=== PATIENT | female | born 1990 | race Caucasian/White ===

== ENCOUNTER 2019-02-14 05:39 | Emergency (ER) | payer BC, SELFPAY ==
[2019-02-14 05:42] VITALS: BP 129/62; PULSE 112; RESP 18; TEMP 37.2; O2SAT 97
--- NOTE | 2019-02-14 05:54 | W.ED.GENAD ---
Discharge Plan Disposition Patient Disposition: HOME Condition: Good Discharge Details Chief Complaint: Sorethroat Clinical Impression: Strep throat Primary Care Provider: Savanah Hoang ED Provider: Michael Chaudhary Home Meds and New Rx's Prescriptions: No Action ibuprofen 200 MG capsule 200 - 400 mg PO Q4H PRN RF: 0 valacyclovir [Valtrex] 500 MG tablet 500 mg PO Q12 HR Qty: 6 RF: 1 escitalopram oxalate [Lexapro] 20 mg tablet See Rx Instructions PO DAILY Qty: 90 RF: 3 escitalopram oxalate 10 mg tablet See Rx Instructions PO DAILY Qty: 90 RF: 3 Discharge Instructions Instructions: Strep Throat (ED) Additional Instructions: You have strep throat. You have received a shot that will help prevent the long-term effects of strep throat. Please continue to take Tylenol and Motrin as needed for pain drink plenty of fluids every day. If you notice any worsening of your symptoms, or any new symptoms such as vomiting, diarrhea, fever, chills, shortness of breath, chest pain, numbness, weakness, or fainting , please return immediately to the emergency department for reevaluation. Please follow up with your primary care provider as soon as possible for reassessment and reevaluation. As always, it was a pleasure participating in your medical care today. Referrals: Savanah Hoang, ASSISTANT PROFESSOR [Primary Care Provider] - Medical Decision Making This is a 28-year-old female who who presents for evaluation of sore throat for the last day and a half. Physical exam demonstrates tonsillar erythema, and exudates. No splenomegaly, no severe fatigue. No red flags of neck pain or stiffness. Strep test is positive. Signs and symptoms are clinically consistent with strep throat. Patient has elected for the shot rather than the pills. We will give this. Recommend Tylenol and Motrin close follow-up with PCP. I have extensively reviewed the treatment plan and discharge instructions with the patient. I have addressed all patient concerns at this time. The patient was made aware of what symptoms to monitor for that would warrant a return to the emergency department. Discussed the plan with the patient, they demonstrate verbal understanding and agreement with our assessment and plan at this time. HPI General Date/Time Provider Initiated Documentation: 02/14/19 05:53. HPI Narrative: This is a pleasant 28-year-old female who presents today for evaluation of sore throat. She states that is been present for the last day and a half. She has associated mild fever and chills. She denies any significant difficulty swallowing. She denies any neck pain, or headache. She denies any chest pain or shortness of breath. She does not admit to any cough. She has no other complaints at this time. No other modifying factors. 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 Related Data Home Medications Medication Instructions Recorded Confirmed ibuprofen 200 - 400 mg PO Q4H PRN tab-cap 10/11/15 02/14/19 valacyclovir [Valtrex] 500 mg PO Q12 HR #6 tab-cap 09/22/17 02/14/19 escitalopram 10 mg tablet See Rx Instructions PO DAILY #90 01/06/19 02/14/19 tab-cap escitalopram 20 mg tablet See Rx Instructions PO DAILY #90 01/06/19 02/14/19 tab-cap Previous Rx's Medication Instructions Recorded valacyclovir [Valtrex] 500 mg PO Q12 HR #6 tab-cap 09/22/17 escitalopram 10 mg tablet See Rx Instructions PO DAILY #90 01/06/19 tab-cap escitalopram 20 mg tablet See Rx Instructions PO DAILY #90 01/06/19 tab-cap Allergies Allergy/AdvReac Type Severity Reaction Status Date / Time ondansetron HCl [From Zofran] Allergy Unknown Hives Unverified 02/14/19 05:46 General Stated Complaint: Sorethroat SLIME: 4 Review of Systems Review of Systems All systems reviewed & are unremarkable except as noted in HPI and below PFSH Social History Smoking/Tobacco Use Status: Never Alcohol Intake: current Alcohol Intake frequency: a few times a week Drug use: Never Substance use type: does not use current occupation: Teacher Pets and animals: No Sexually active: Yes Current gender identity: female What type of physical activity do you participate in: running Frequency: 1-2 times per week Do you feel safe at home: Yes Do you feel safe in your relationship?: Yes Exam Narrative Exam Narrative: 1.Const: Well-nourished, Well-developed, appearing stated age 2.Eyes: PERRL, no conjunctival injection, and symmetrical lids. 3.ENT: Atraumatic external nose and ears. Moist MM. Neck: Symmetric, trachea midline, No thyromegaly. Mild erythema in the posterior oropharynx with mild tonsillar exudates, grade 2 tonsils size. Patient demonstrates good movement of cervical neck. There is no nuchal rigidity, no nuchal tenderness. Patient is able to flex the neck without any difficulty or significant pain. Negative Kernig's and Brudzinski sign. 4.CVS: +S1/S2, No murmurs or gallops. Peripheral pulses 2+ and equal in all extremities. Brisk capillary refill in all extremities. 5.RESP: Unlabored respiratory effort. Clear to auscultation bilaterally. No wheezes rales or rhonchi 6.GI: Soft, Nontender/Nondistended, No hepatosplenomegaly. No guarding or rebound. 7.MSK: Normocephalic/Atraumatic, Extremities w/o deformity or ttp No cyanosis or clubbing, Normal movement of all extremities 8.Skin: Warm, Dry. No rashes or lesions. 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 Sensation grossly intact, no focal neurologic deficits. 10.Psych: (AAO) x3. Appropriate mood and affect Course Vital Signs Temperature 37.2 C 02/14/19 05:42 Pulse 112 H 02/14/19 05:42 Respiratory Rate 18 02/14/19 05:42 Blood Pressure 129/62 02/14/19 05:42 Pulse Oximetry 97 02/14/19 05:42 Temperature 37.2 C 02/14/19 05:42 Temperature Source Skin 02/14/19 05:42 Pulse 112 H 02/14/19 05:42 Respiratory Rate 18 02/14/19 05:42 Respiratory Effort Non-Labored 02/14/19 05:45 Blood Pressure 129/62 02/14/19 05:42 Blood Pressure Position Sitting 02/14/19 05:42 Pulse Oximetry 97 02/14/19 05:42 Oxygen Delivery Method Room Air 02/14/19 05:42 Oxygen Flow Rate 0 02/14/19 05:42 Pain Level 7 02/14/19 05:42 Lab/Test Results Lab/Test Results: POC Strep Test-MICHELLE(Rapid) Start: 02/14/19 05:50 Freq: .Rapid Strep Test Status: Active Protocol: Document 02/14/19 05:50 RD (Rec: 02/14/19 05:50 RD [id number]) Strep test-MICHELLE(Rapid)-POC POC-Strep test-MICHELLE (Rapid) Positive POC-Strep test-MICHELLE (Rapid) Positive
== END 2019-02-14 06:05 | disposition home or self-care (01) ==
LOC: ER 06:08
PROVIDERS: Emergency Provider Student in an Organized Health Care Education/Training Program; PCP Nurse Practitioner Family
DX: J02.0 Streptococcal pharyngitis (principal)
CPT/HCPCS: 87880; 96372; 99284; J0561

== ENCOUNTER 2019-02-16 11:16 | Outpatient (REF) | payer BC, SELFPAY | END 2019-02-16 11:36 | LOC: LBN 11:16 | PROVIDERS: PCP Nurse Practitioner Family; Visit Provider Nurse Practitioner | DX: J02.9 Acute pharyngitis, unspecified (principal) | CPT/HCPCS: 87070 ==

== ENCOUNTER 2019-02-22 11:12 | Outpatient (REF) | payer BC, SELFPAY ==
--- NOTE | 2019-02-22 10:15 | PAPFT_PTH ---
PATIENT: Molly Gonzalez LOC: N U#:[id number] AGE/SX: 28/F ROOM: RE02/22/[address]: BENITEZ Oquendo : 1990 BED: DIS: 02/22/2019 SPEC #: [id number] RECD: 02/22/19 13:01 STATUS: SAMIRA REKarine #: [id number] SHERLEY: 02/22/19 10:[address]: Bryanna Schuler DEPT: [facility] Cytology RECD BY: Myrtle Sinclair ENTERED: 02/22/19 13:02 SP TYPE: PAPFT BOWEN DR: Savanah Hoang APRN Tissues: 1 - CX/ENDOCX FOR PAP SMEARS Procedures: PAP THIN PREP/UVM Screening Comments: [id number]
== END 2019-02-22 11:32 ==
LOC: LBN 11:12
PROVIDERS: PCP Nurse Practitioner Family; Visit Provider Nurse Practitioner Family
DX: Z12.4 Encounter for screening for malignant neoplasm of cervix (principal); R85.612 Low grade squamous intraepithelial lesion on cytologic smear of anus (LGSIL)
CPT/HCPCS: 88142

== ENCOUNTER 2019-04-15 10:26 | Outpatient (REF) | payer BC, SELFPAY ==
--- NOTE | 2019-04-15 09:45 | CER_PTH ---
PATIENT: Molly Gonzalez LOC: [facility] U#:[id number] AGE/SX: 28/F ROOM: RE04/15/[address]: Richard Bravo MD : 1990 BED: DIS: 04/15/2019 SPEC #: [id number] RECD: 04/15/19 12:44 STATUS: SAMIRA RAZO #: [id number] SHERLEY: 04/15/19 09:[address]: Richard Bravo DEPT: Surgical Specimen RECD BY: Myrtle Sinclair ENTERED: 04/15/19 12:45 SP TYPE: CER OTHR DR: Savanah Hoang APRN Tissues: 1 - CERVICAL BIOPSY 2 - ENDOCERVICAL BX/CURRETTE Procedures: GROSS AND MICRO LEVEL 4 Comments: [id number]
== END 2019-04-15 10:46 ==
LOC: LBN 10:26
PROVIDERS: PCP Nurse Practitioner Family; Visit Provider Obstetrics & Gynecology
DX: N87.9 Dysplasia of cervix uteri, unspecified (principal); R87.612 Low grade squamous intraepithelial lesion on cytologic smear of cervix (LGSIL)
CPT/HCPCS: 88305

== ENCOUNTER 2020-02-21 01:30 | Outpatient (CLI) | payer BC, SELFPAY ==
[2020-02-21 11:20] LABS: Abs Immature Grans 0.01 k/cumm (0.0-0.09); Absolute Basophil Count 0.02 k/cumm (0.0-0.2); Absolute Eosinophil Count 0.08 k/cumm (0.0-0.7); Absolute Lymphocyte Count 1.39 k/cumm (1.2-3.4); Absolute Monocyte Count 0.38 k/cumm (0.11-0.7); Absolute Neutrophil Count 6.23 k/cumm (1.2-6.7); Basophils % 0.2; HCT 38.1 % (36.0-46.0); HGB 13.4 g/dL (12.0-15.5); Immature Grans % 0.1 %; Lymphocytes % 17.1; Mean Corp. HGB Concentration 35.2 g/dL (32.0-36.0); Mean Corpuscular Volume 85.2 fL (80-95); Mean Platelet Volume 10.1 fL (8.0-11.0); Monocytes % 4.7; Neutrophils % 76.9; Platelet Count 245 x1000/uL (130-400); RBC 4.47 m/cumm (4.00-5.20); RBC Distribution Width 12.3 % (11.7-14.6); White Blood Cell Count 8.11 k/cumm (4.4-10.8)
[2020-02-21 12:02] LABS: TSH (W/Ref FT4) 1.27 uIU/mL (0.36-3.74)
[2020-02-22 11:09] LABS: HIV-1/2 Ag & Ab Screen Negative (Negative)
[2020-02-22 15:29] LABS: Rubella IgG Ab (UVM) Positive (See Note); Varicella IgG Antibody Positive (See Note)
[2020-02-22 15:52] LABS: Syphilis Total Ab w/Reflex Nonreactive (Nonreactive)
[2020-02-23 09:47] LABS: Hepatitis B Surface Ag Negative (Negative)
[2020-02-23 11:03] LABS: Hepatitis C Ab w Rflx HCV PCR Negative (Negative)
[2020-02-27 13:31] LABS: Specimen WB Whole Blood
[2020-02-28 00:44] LABS: Result Summary NEGATIVE; Specimen WB Whole Blood
== END 2020-02-21 01:50 ==
PROVIDERS: PCP Nurse Practitioner Family; Visit Provider Advanced Practice Midwife
DX: Z34.91 Encounter for supervision of normal pregnancy, unspecified, first trimester (principal); Z3A.11 11 weeks gestation of pregnancy; Z11.59 Encounter for screening for other viral diseases; Z36.89 Encounter for other specified antenatal screening; Z11.4 Encounter for screening for human immunodeficiency virus [HIV]
CPT/HCPCS: 36415; 81329; 86787; 86803; 86850; 86900; 86901; 87340; 87389; 81220; 84443; 85025; 86762; 86780

== ENCOUNTER 2020-02-21 11:25 | Outpatient (REF) | payer BC, SELFPAY ==
--- NOTE | 2020-02-21 10:00 | PAPFT_PTH ---
PATIENT: Molly Gonzalez LOC: [facility] U#:[id number] AGE/SX: 29/F ROOM: RE02/21/[address]: Janice Jeronimo CNM : 1990 BED: DIS: 02/21/2020 SPEC #: [id number] RECD: 02/21/20 12:54 STATUS: SAMIRA REQ #: [id number] SHERLEY: 02/21/20 10:[address]: Janice Jeronimo DEPT: [facility] Cytology RECD BY: Myrtle Sinclair ENTERED: 02/21/20 12:55 SP TYPE: PAPFT OTHR DR: Savanah Hoang APRN Tissues: 1 - CX/ENDOCX FOR PAP SMEARS Procedures: PAP THIN PREP/UVM Screening HPV DNA PROBE Comments: [id number]
[2020-02-21 12:35] LABS: *AMPHETAMINES SCREEN URINE Negative (Negative); *BARBITURATES SCREEN URINE Negative (Negative); *BENZODIAZEPINES SCREEN URINE Negative (Negative); Cannabinoids THC Negative (Negative); Cocaine Screen,Urine Negative (Negative); METHADONE URINE SCREEN Negative (Negative); OPIATES URINE SCREEN Negative (Negative); Tricyclic Antidepressants Negative (Negative)
[2020-02-23 07:16] LABS: Chlamydia Result Negative (Negative); GC Result Negative (Negative)
[2020-02-25 12:56] LABS: Buprenorphine Negative; Norbuprenorphine Negative
== END 2020-02-21 11:45 ==
LOC: LBN 11:25
PROVIDERS: PCP Nurse Practitioner Family; Visit Provider Advanced Practice Midwife
DX: Z34.91 Encounter for supervision of normal pregnancy, unspecified, first trimester (principal); Z3A.11 11 weeks gestation of pregnancy; Z11.3 Encounter for screening for infections with a predominantly sexual mode of transmission; Z12.4 Encounter for screening for malignant neoplasm of cervix; Z11.51 Encounter for screening for human papillomavirus (HPV); R87.612 Low grade squamous intraepithelial lesion on cytologic smear of cervix (LGSIL)
CPT/HCPCS: 80307; 87491; 87591; 88142; 87086; 87624

== ENCOUNTER 2020-04-12 02:08 | Outpatient (CLI) | payer BC, SELFPAY ==
--- NOTE | 2020-04-12 07:30 | DI.US_ITS ---
EXAM: US OB 2-3 TRIMESTER CLINICAL HISTORY: 18 wk anatomy survey,[id number]. TECHNIQUE: Transabdominal obstetrical ultrasound performed. COMPARISON: No exams were available for comparison FINDINGS: Transabdominal obstetrical ultrasound performed. FINDINGS: Number of fetuses: One. position: Varied during the examination. heart rate: 162 bpm. Placental location: Anterior and fundal. No evidence of previa. BIOMETRIC DATA: Composite Age: 20 weeks 1 day EDC: 08/29/2020 Heart Rate: 162BPM Amniotic fluid index: Visually, amount of fluid is within normal limits. ANATOMICAL SURVEY: Within normal limits. BPD: 4.7cm HC: 17.7cm AC: 14.9cm FL: 3.2cm Cisterna Magna: 3.1 mm Cerebellum: 2.0 cm IMPRESSION: 1. Single live intrauterine gestation as above. 2. Normal anatomic survey. DATA REPOSITORY:
== END 2020-04-12 02:28 ==
PROVIDERS: PCP Nurse Practitioner Family; Visit Provider Advanced Practice Midwife
DX: Z34.92 Encounter for supervision of normal pregnancy, unspecified, second trimester (principal); Z3A.18 18 weeks gestation of pregnancy
CPT/HCPCS: 76805

== ENCOUNTER 2020-04-12 03:12 | Outpatient (CLI) | payer BC, SELFPAY ==
[2020-04-17 12:07] LABS: AFP 70.1 ng/mL; Calculated age at EDD 31 years; Cigarette smoking status non-Smoker; GA used in risk estimate Scan estimate; INHIBIN 247 pg/mL; IVF Pregnancy No; Initial or repeat testing Initial testing; Insulin dependent diabetes No; Maternal Weight 145 lbs; Number of Fetuses 1; Physician Phone Number 802-748-7300; Prev Down(T21)/Trisomy Pregnan No; Prev Pregnancy w/NTD No; RECOMMENDED FOLLOW UP None.; Results Summary Normal risk; hCG, TOTAL 14.8 IU/mL; hCG, TOTAL MoM 0.66 MoM; uE3 MoM 1.09 MoM
== END 2020-04-12 03:32 ==
PROVIDERS: Advanced Practice Midwife; PCP Nurse Practitioner Family; Visit Provider Advanced Practice Midwife
DX: Z34.92 Encounter for supervision of normal pregnancy, unspecified, second trimester (principal)
CPT/HCPCS: 36415; 81511

== ENCOUNTER 2020-06-15 02:40 | Outpatient (CLI) | payer BC, SELFPAY ==
[2020-06-15 09:30] LABS: HCT 37.9 % (36.0-46.0); MCH 30.4 pg (27.0-33.0); MCHC 34.3 % (32.0-36.0); MCV 88.6 fL (80-95); MPV 10.2 fL (8.0-11.0); Platelet Count 207 10^3/uL (130-400); RBC 4.28 10^6/uL (3.93-5.22); RDW 12.8 % (11.7-14.6); RDW-SD 41.5 fL; WBC 9.84 10^3/uL (4.4-10.8)
[2020-06-15 09:55] LABS: Glucose,1 Hr (Glucola) 89 mg/dL (80-140)
== END 2020-06-15 03:00 ==
PROVIDERS: Advanced Practice Midwife; PCP Nurse Practitioner Family; Visit Provider Advanced Practice Midwife
DX: Z34.92 Encounter for supervision of normal pregnancy, unspecified, second trimester (principal)
CPT/HCPCS: 36415; 82950; 85027

== ENCOUNTER 2020-06-22 02:11 | Outpatient (CLI) | payer BC, SELFPAY ==
--- NOTE | 2020-06-22 06:15 | DI.US_ITS ---
APPROVED REPORT EXAM: Comprehensive 2D, Doppler, and color-flow Echocardiogram Patient Location: Out-Patient Lowerator Operator: Lazara Graham RDCS (AE) Indications: New murmur in Other Information Study Quality: Good Conclusion Left Ventricle : The left ventricle is normal size. The left ventricular systolic function is normal. The left ventricular ejection fraction is within the normal range. There is normal left ventricular wall thickness. There is normal LV segmental wall motion. The left ventricular diastolic function is normal. LVEF is 60%. Right Ventricle : The right ventricle is normal size. The right ventricular systolic function is norm al. The RVSP is 17.5 mmHg. Atria : The left atrium size is normal. The right atrium size is normal. Valves: There are no hemodynamically significant valvular lesions. Great Vessels : The aortic root is normal in size. The ascending aorta is normal in size. Aortic arch is normal in caliber. IVC is normal in size and collapses >50% with inspiration. Please see remainder of study for further details. Wall motion Left Ventricle The left ventricle is normal size. The left ventricular systolic function is normal. The left ventric ular ejection fraction is within the normal range. There is normal left ventricular wall thickness. T here is normal LV segmental wall motion. The left ventricular diastolic function is normal. There is no ventricular septal defect visualized. LVEF is 60%. Right Ventricle The right ventricle is normal size. The right ventricular systolic function is normal. The RVSP is 17 .5 mmHg. Atria The left atrium size is normal. The right atrium size is normal. The interatrial septum is intact wit h no evidence for an atrial septal defect. Aortic Valve The aortic valve is normal in structure. Aortic valve is trileaflet. There is no aortic valvular sten osis. No aortic regurgitation is present. Mitral Valve The mitral valve is normal in structure. No evidence of mitral valve stenosis. Trace mitral regurgita tion. Tricuspid Valve The tricuspid valve is normal in structure. There is no tricuspid valve stenosis. Trace tricuspid reg urgitation. Pulmonic Valve The pulmonary valve is normal in structure. There is no pulmonic valvular stenosis. Trace pulmonic re gurgitation. Great Vessels The aortic root is normal in size. The ascending aorta is normal in size. Aortic arch is normal in ca liber. IVC is normal in size and collapses >50% with inspiration. Pericardium There is no pericardial effusion. 2D Dimensions IVSD d PLAX 0.79 cm F: 0.6-1.0 LV Vol A2C d MOD 75.0 mL LVPW d PLAX 0.78 cm F: 0.6 - 1.0 LV Vol A4C d MOD 74.8 mL LVID d PLAX 4.24 cm F: 3.8 - 5.2 LA vol/ BSA A2C s A-L 19.6 mL/m2 LVDs 2.75 cm F: 2.2 - 3.5 LA vol/ BSA A4C s A-L 12.0 mL/m2 Ao Root d 2.60 cm F: 2.7 - 3.3 LA Vol/ BSA Biplane s A-L 15.4 mL/m2 RA Area A4C 9.39 cm2 LA Area A4C s MOD 10.70 cm2 RA Vol/ BSA A4C s A-L 9.5 mL/m2 LA Area A2C s MOD 13.81 cm2 Ao Asc Diam d 2.63 cm F: 2.3 - 3.1 LV EF A4C MOD 59.8 % LV EF Teichholz 63.9 % LV EF A2C MOD 57.1 % LVEF (Reyez's) 58.59 % F: 54 - 74 LV EF Biplane MOD 58.6 % LV Volume 58.92 mL F: 46 - 106 SV 44.20 mL LV Volume Index 33.10 mL/m2 F: 29 - 61 SV Index 24.83 mL/m2 LV Vol Biplane MOD 75.4 mL FS 34.45 % M-Mode TAPSE 2.38 cm (M/F) >1.7 LV Diastology MV E' medial 0.134 (>0.07 m/s) E/A Ratio 1.2 LV E/e MED 5.85 (<14) MV E Vmax 0.79 (0.4-1.3 m/s) MV E' lateral 0.158 (>0.1 m/s) MV A Vmax 0.65 (0.4-1.3 m/s) LV E/e LAT 5.00 (<14) MV E/A Ratio 1.16 MV E/E' medial 5.86 MV E/E' lateral 5.00 Aortic Valve LVOT Vmax 1.07 m/s LVOT Mean Jim. 0.79 m/s LVOT Peak Grad 4.6 mmHg LVOT Mean Grad 2.7 mmHg LVOT VTI 0.191 m LVOT Diam s 2.10 cm AoV Vmax 1.29 m/s Velocity Ratio 0.82 AoV Mean Jim. 0.82 m/s AoV Peak Grad 6.7 mmHg AoV Mean Grad 3.1 mmHg AoV VTI 0.224 m Mitral Valve MV DT 241 (160-240 msec) MV PHT 70 msec MV Area PHT 3.15 cm2 Pulmonary Valve PV Vmax 1.09 (0.5-1.5 m/s) RVOT Peak Gr. 2.63 mmHg PV Peak Grad 4.7 mmHg RVOT Mean Gr. 1.20 mmHg PV Mean Grad 2.3 mmHg RVOT VTI 0.128 m PV VTI 0.186 m RVOT Vmax 0.81 m/s Tricuspid Valve TR Peak Grad 14.5 mmHg TR Vmax 1.91 m/s RA Pressure 3.00 mmHg RVSP (TR) 17.5 mmHg
== END 2020-06-22 02:31 ==
PROVIDERS: PCP Nurse Practitioner Family; Visit Provider Nurse Practitioner Family
DX: R01.1 Cardiac murmur, unspecified (principal); O99.413 Diseases of the circulatory system complicating pregnancy, third trimester
CPT/HCPCS: 93306

== ENCOUNTER 2020-08-15 09:28 | Outpatient (CLI) | payer BC, SELFPAY ==
[2020-08-15 09:42] VITALS: BP 127/80; PULSE 86; TEMP 36.8
[2020-08-15 10:03] VITALS: BP 127/80; PULSE 86
[2020-08-15 10:20] LABS: HCT 36.7 % (36.0-46.0); HGB 12.4 g/dL (11.2-15.7); MCH 29.4 pg (27.0-33.0); MCHC 33.8 % (32.0-36.0); MPV 11.1 fL (8.0-11.0); Platelet Count 172 10^3/uL (130-400); RBC 4.22 10^6/uL (3.93-5.22); RDW 12.7 % (11.7-14.6); RDW-SD 39.6 fL; WBC 9.97 10^3/uL (4.4-10.8)
[2020-08-15 10:32] VITALS: BP 114/77; PULSE 83
[2020-08-15 10:35] LABS: ALT 17 U/L (14-59); AST 18 U/L (15-37); Albumin 2.6 g/dL (3.4-5.0); Alkaline Phosphatase 165 U/L (46-116); Anion Gap 8.5 mmol/L (3-11); BUN 9 mg/dL (7-18); Bilirubin, Total 0.4 mg/dL (0.2-1.0); CO2 23.5 mmol/L (21.0-32.0); CREATININE 0.63 mg/dL (0.55-1.02); Calcium 9.1 mg/dL (8.5-10.1); Chloride 103 mmol/L (98-107); Glucose 78 mg/dL (74-106); Potassium 3.6 mmol/L (3.5-5.1); Sodium 135 mmol/L (136-145); Total Protein 6.8 g/dL (6.4-8.2); Uric Acid 3.9 mg/dL (2.6-6.0)
--- NOTE | 2020-08-16 13:32 | W.OBNST ---
Date of service: 08/15/20 Time of Service: 16:00 NST Evaluation Reason for NST Reasons for Nonstress Test: GESTATIONAL HYPERTENSION Gestational Age Gestational Age in Weeks and Days: 36 Weeks and 6Days Test and Monitor Explained Test/Monitor Explained: Test Explained, Monitor Explained and Patient Verbalized Understanding Vital Signs Blood Pressure: 127/80 Pulse: 86 Temperature: 98.2 F NST Information Date on Monitor: 08/15/20 Time on Monitor: 10:36 Date off Monitor: 08/15/20 Time off Monitor: 10:36 Total Time on Monitor: 0 NST Interventions: PO Hydration NST Evaluation Patient States Movement: Present FHR Baseline: 145 Variability: Moderate 6-25 bpm Accelerations: 15x15 Decelerations: None NST Results: Reactive Note NST Note Note: NST for elevated B.P at the office. B.P 127/80. Reactive NST. Preeclampsia labs drawn and pending. Signs of preeclampsia were reviewed. I will call Molly with results NST Reviewed and Verified by: Omaira Bauman
[2020-08-16 13:33] VITALS: BP 127/80; PULSE 86; TEMP 36.8
== END 2020-08-15 10:37 ==
LOC: BCD 09:29 → OBS 09:36
PROVIDERS: PCP Nurse Practitioner Family; Visit Provider Advanced Practice Midwife
DX: O13.3 Gestational [pregnancy-induced] hypertension without significant proteinuria, third trimester (principal); Z3A.36 36 weeks gestation of pregnancy
CPT/HCPCS: 36415; 59025; 80053; 85027; 84550

== ENCOUNTER 2020-08-15 18:51 | Outpatient (REF) | payer BC, SELFPAY ==
[2020-08-15 16:05] LABS: PROTEIN 21.2 mg/dL
[2020-08-15 16:07] LABS: *AMPHETAMINES SCREEN URINE Negative (Negative); *BARBITURATES SCREEN URINE Negative (Negative); *BENZODIAZEPINES SCREEN URINE Negative (Negative); Cannabinoids THC Negative (Negative); Cocaine Screen,Urine Negative (Negative); METHADONE URINE SCREEN Negative (Negative); OPIATES URINE SCREEN Negative (Negative)
[2020-08-15 17:37] LABS: Tricyclic Antidepressants Negative (Negative)
[2020-08-15 17:45] LABS: COMMENT (LAB VIEW ONLY) 149.99 mg/dL; Prot/Crea Ur Ratio 0.14
[2020-08-19 11:25] LABS: Buprenorphine Negative
== END 2020-08-15 19:11 ==
LOC: LBN 18:51
PROVIDERS: PCP Nurse Practitioner Family; Visit Provider Advanced Practice Midwife
DX: O16.3 Unspecified maternal hypertension, third trimester (principal); Z34.93 Encounter for supervision of normal pregnancy, unspecified, third trimester
CPT/HCPCS: 80307; 82565; 84156; 87081

== ENCOUNTER 2020-08-22 09:50 | Inpatient (IN) | payer BC, SELFPAY ==
[2020-08-22] VITALS (13 sets, daily range): BP systolic 109–149; BP diastolic 57–85; PULSE 90–111; RESP 16; TEMP 36.7–37.1; O2SAT 99
[2020-08-22 10:34] LABS: ROM Plus Positive
--- NOTE | 2020-08-22 12:01 | HPE_ITS ---
Date of service: 08/22/20 Time of Service: 12:02 Assessment and Plan Assessment and plan (1) Spontaneous rupture of amniotic membranes: Status: Acute (2) Spontaneous onset of labor: Status: Acute Assessment and plan: Admit to Center. Will continue to assess labor pattern. Comfort measures. Covid- 19 test. Anticipate . OB-HPI Labor/Delivery History of Present Illness Reason for Visit: R/O SROM Chief Complaint: Uterine Contractions; Suspected Rupture of Membranes , Associated Signs and Symptoms of Suspected ROM: none. LILLY Calculator Estimated Delivery Date Method Current WG Current Estimate 09/06/20 LMP (Certain) 37w 6d Other Estimates 09/07/20 Ultrasound #1 37w 5d Comments: Molly called and reported ruptured membranes at 0600. She was leaking smal amounts of clear fluid on arrival which was ROM plus and nitrazine pos., pos. pooling. Contractions are irregular and mild and described as cramping. She is admitted in early labor. History of Present Expected Delivery Route/Plan - CNM FOB/boyfriend - Mehul Gonzalez (has 2 older children) BB - Open to several options for relief in labor GBS negative Specific Issues/Plan 1. Colpo Apr 2019 for LGSIL, showed only reactive changes. Next PAP/HPV due this summer, done at initial OB 1a. PAP result is LGSIL, +HPV, discussed w/Dr. Wilson, colpo is recommended 2. Anxiety disorder, took lexapro but stopped in October, december restart at delivery to avoid PPD 3. Declines [place], accepts CF/SMA testing and Quad screen, form signed 3a. CF/SMA carrier screen negative 3b. Quad screen low risk x3 4. Hx HSV, last outbreak a couple years ago, start Valtrex prophylaxis at 36 weeks 5. Systolic flow murmer heard at initial OB, no hx sx or concerns 5a. referred to PCP, Rosa Hoang 5b. 06/22/20 maternal echo wnl w/o need for f/u as per consult w/ Dr. Wilson. al 6. sciatica right - PT offered. She will consider if it increases. [facility], [facility] Medical History Anxiety and depression Hx of polymerase chain reaction DNA 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 (08/11/14) 2009 Seasonal affective disorder Family History Mother Essential hypertension Hypothyroid Maternal Grandfather Heart disease Paternal Grandfather Colon cancer Father Sarcoidosis Maternal Grandmother Dementia Macular degeneration Social History Smoking/Tobacco Use Status: Never Smoking risk assessment performed?: Yes Alcohol Intake: current Alcohol Intake frequency: a few times a week Drug use: Never Substance use type: does not use Household members: significant other Housing: house Communication Needs: None current occupation: Teacher Pets and animals: No Sexually active: Yes Current gender identity: female What is your relationship status?: living with partner Panel score (0-1 are the most socially isolated patients): 1 What type of physical activity do you participate in: running Frequency: 1-2 times per week Do you feel safe at home: Yes Do you feel safe in your relationship?: Yes Female Reproductive History Menstrual control method: pills History History 1 Para 0 Hx # Term Pregnancies 0 Multiple births 0 Hx # Pregnancies 0 Ectopic pregnancies 0 AB induced 0 Hx Number of Living Children 0 AB spontaneous 0 Meds Home Medications and Allergies Home Medications Medication Instructions Recorded Confirmed Type vitamin with calcium 1 tab PO DAILY #90 tab 01/27/20 08/22/20 Rx no.72-iron 27 mg-folic acid 1 mg tablet valacyclovir 500 mg tablet 500 mg PO BID #60 tab 08/01/20 08/22/20 Rx Allergies Allergy/AdvReac Type Severity Reaction Status Date / Time ondansetron HCl [From Zofran] Allergy Unknown Hives Verified 08/15/20 08:47 Exam Physical Exam Vital signs: Temp Pulse BP 98.2 F 92 H 144/79 H 08/22/20 09:37 08/22/20 11:53 08/22/20 11:53 Vital Signs Reviewed: Yes Constitutional Constitutional: no acute distress Detailed Labor and Delivery Exam Burgess Score: Cervical Points Exam 0 1 2 3 Dilation Closed 1-2cm 3-4 cm 5-6cm Effacement 0-30% 40-50% 60-70% 80% Consistency Firm Medium Soft Station -3 -2 -1,0 +1,+2 Position Posterior Mid Anterior Amniotic Membrane Status: Ruptured Rupture Method: Spontaneous Amniotic Fluid: Clear Pooling: Positive Nitrazine: Positive ROM Plus: Positive Contraction Frequency(min): irregular, every 2-4 minutes Contraction Intensity: Mild Fetus A Heart Rate Baseline: 140 Monitor Accelerations: 15 X 15 Monitor Decelerations: None Variability: Moderate (6-25 BPM) Presentation: Cephalic Categories: Category I Date of Membrane Rupture: 08/22/20 Time of Membrane Rupture: 06:15 Respiratory Exam Respiratory Exam: Normal Cardiovascular Exam Cardiovascular Exam: Normal Abdominal Exam Abdominal Exam: Normal Rectal Exam Rectal Exam: Normal Exam Exam: Normal Extremities Exam Extremities Exam: Normal Skin Exam Skin Exam: Normal Psychiatric Exam Psychiatric Exam: Normal Results Results Group Beta Strep: Negative Blood Type: B+ Rubella Status: Immune Varicella Immunity: Immune Risk Assessment Risk for Shoulder Dystocia Historical/Initial OB: NEGATIVE FOR: Pelvic Abnormality, Pre- BMI>30, Previous Shoulder Dystocia or Previous Macrosomia 40 Weeks: NEGATIVE FOR: EFW> 4500 gms, Maternal Weight Gain >40lb or Post Dates Increased Risk?: No Risk for Pre-Eclampsia Yes, if one or more: NEGATIVE FOR: Hx Pre-E/Gest HTN, Chronic HTN, Multiple Gestation, Pre-gestational DM, Renal Disease, Systemic Lupus or APA Syndrome Yes, if 2 or more: POSITIVE FOR: Nulliparity; NEGATIVE FOR: Age>= 35 yrs, >10yr btwn pregnancies, BMI>30, ethinicty, Mother/Sister w/ Pre-E or Previous IUGR Risk for Post- Hemorrhage Initial: NEGATIVE FOR: Multiple Gestation, Previous PPH, Known Clotting Deficiency, Grand Multiparity or Anticoagulation At Risk?: No Risks Reviewed Risks Reviewed Upon Admission: Yes
[2020-08-22 12:30] LABS: HCT 36.4 % (36.0-46.0); HGB 12.5 g/dL (11.2-15.7); MCH 29.5 pg (27.0-33.0); MCHC 34.3 % (32.0-36.0); MCV 85.8 fL (80-95); MPV 11.2 fL (8.0-11.0); Platelet Count 178 10^3/uL (130-400); RBC 4.24 10^6/uL (3.93-5.22); RDW 12.8 % (11.7-14.6); RDW-SD 39.2 fL; WBC 11.58 10^3/uL (4.4-10.8)
[2020-08-22 12:43] LABS: ALT 18 U/L (14-59); AST 18 U/L (15-37); Albumin 2.7 g/dL (3.4-5.0); Alkaline Phosphatase 171 U/L (46-116); BUN 10 mg/dL (7-18); Bilirubin, Total 0.4 mg/dL (0.2-1.0); CREATININE 0.54 mg/dL (0.55-1.02); Chloride 104 mmol/L (98-107); Glucose 73 mg/dL (74-106); Potassium 3.8 mmol/L (3.5-5.1); Sodium 137 mmol/L (136-145); Total Protein 6.9 g/dL (6.4-8.2)
[2020-08-22 12:55] LABS: Uric Acid 4.1 mg/dL (2.6-6.0)
--- NOTE | 2020-08-22 15:27 | W.PM.OBNL1 ---
Date of service: 08/22/20 Time of Service: 15:28 Pelvic Exam Dilation: 3 Effacement (%): 85 station: +1 Cervix Position: posterior Consistency: soft Vaginal Exam Presentation: Cephalic Pooling: Positive Contractions Contraction Frequency(min): everyn2-3 Intensity: Strong Fetus A Monitor: Doppler Heart Rate Baseline: 130 Presentation: Cephalic FHR Rhythm: Regular Decelerations: None Assessment and Plan Assessment and plan (1) Spontaneous onset of labor: Status: Acute Assessment and plan: continue to offer comfort measures and encourage position changes. Anticipate . Dr. Dean notified of patient's admission and status. Objective Abnormal lab results 08/22/20 08/22/20 Range/Units 12: 12:17 WBC 11.58 H (4.4-10.8) 10^3/uL MPV 11.2 H (8.0-11.0) fL Anion Gap 12.0 H (3-11) mmol/L Creatinine 0.54 L (0.55-1.02) mg/dL Glucose 73 L (74-106) mg/dL Alkaline Phosphatase 171 H (46-116) U/L Albumin 2.7 L (3.4-5.0) g/dL Temp Pulse BP 98.1 F 93 H 116/77 08/22/20 13:09 08/22/20 14:01 08/22/20 14:01 Laboratory Results WBC 11.58 10^3/uL (4.4-10.8) H 08/22/20 12:17 RBC 4.24 10^6/uL (3.93-5.22) 08/22/20 12:17 Hgb 12.5 g/dL (11.2-15.7) 08/22/20 12:17 Hct 36.4 % (36.0-46.0) 08/22/20 12:17 MCV 85.8 fL (80-95) 08/22/20 12:17 MCH 29.5 pg (27.0-33.0) 08/22/20 12:17 MCHC 34.3 % (32.0-36.0) 08/22/20 12:17 RDW 12.8 % (11.7-14.6) 08/22/20 12:17 Plt Count 178 10^3/uL (130-400) 08/22/20 12:17 MPV 11.2 fL (8.0-11.0) H 08/22/20 12:17 Sodium 137 mmol/L (136-145) 08/22/20 12:17 Potassium 3.8 mmol/L (3.5-5.1) 08/22/20 12:17 Chloride 104 mmol/L (98-107) 08/22/20 12:17 Carbon Dioxide 21.0 mmol/L (21.0-32.0) 08/22/20 12:17 Anion Gap 12.0 mmol/L (3-11) H 08/22/20 12:17 BUN 10 mg/dL (7-18) 08/22/20 12:17 Creatinine 0.54 mg/dL (0.55-1.02) L 08/22/20 12:17 Estimated GFR/1.73 m2 >= 60.00 (mL/min/1.73m2) 08/22/20 12:17 Glucose 73 mg/dL (74-106) L 08/22/20 12:17 Uric Acid 4.1 mg/dL (2.6-6.0) 08/22/20 12:17 Calcium 9.0 mg/dL (8.5-10.1) 08/22/20 12:17 Total Bilirubin 0.4 mg/dL (0.2-1.0) 08/22/20 12:17 AST 18 U/L (15-37) 08/22/20 12:17 ALT 18 U/L (14-59) 08/22/20 12:17 Alkaline Phosphatase 171 U/L (46-116) H 08/22/20 12:17 Total Protein 6.9 g/dL (6.4-8.2) 08/22/20 12:17 Albumin 2.7 g/dL (3.4-5.0) L 08/22/20 12:17 Membranes Rupture Positive 08/22/20 10:05 Patient ABO/Rh B Positive 08/22/20 12:17 Antibody Screen Negative 08/22/20 12:17 Subjective Interval history since last seen: Progressed to active labor. 3 cms at 1315. using ntrous oxide with good effect. using the tub also with good effect. Beginnning to feel an urge to push. Results Hemoglobin/Hematocrit: Hgb 12.5 g/dL (11.2-15.7) 08/22/20 12:17 Hct 36.4 % (36.0-46.0) 08/22/20 12:17 Abnormal Lab Findings: Abnormal Labs 08/22/20 08/22/20 12:17 12:17 WBC 11.58 H MPV 11.2 H Anion Gap 12.0 H Creatinine 0.54 L Glucose 73 L Alkaline Phosphatase 171 H Albumin 2.7 L
--- NOTE | 2020-08-22 18:03 | OBVDS_ITS ---
Date of service: 08/22/20 Time of Service: 18:03 OB Labor/ Delivery Information Baby A Delivery Delivery Method: Spontaneaous Presentation: Cephalic Cephalic Position: Vertex Vertex Position: Left Occipital Anterior Cord Description-Baby A: 3 Vessels Amniotic Fluid: Clear Estimated Blood Loss: 350 Delivery Outcome: Liveborn Transferred: Remains with Mother Note: FHTs 130s during first stage of labor. FHTs 120s in second stage with decellerations noted by doppler with pushing. Progressed to full dilation and began pushing. SPushed well and had a spontaneous delivery of male infant delivered in DIVINE position. Baby was placed on mother's abdomen and dried and stimulated. Spontaneous cry. A short Cord was noted and was clamped and cut by the baby's father. The placenta delivered spontaneously and appears to be intact with a three vessel cord. Pitocin 10 units IM was administered after delivery of the placenta. The perineum was inspected and there were bilateral periurethral lacerations which were not repaired and a 2nd degree laceration which was repaired. The baby did breastfeed. After delivery, Mother and baby Alok and father of the baby were stable and bonding well in the delivery room and there were no complications. Providers Nurse Bottom Cager: Omaira Bauman Highway Technician: Corona Watson Nurse: Candi Burr Nurse: Angel Schuster Labor/Delivery Information Number of Babies in Womb: 1 Steroids Given: None Reason Steroids Not Administered: N/A Group Beta Strep: Negative Antibiotics Administered: No Rubella Status: Immune Blood Type: B+ Varicella Immunity: Immune Medication in Delivery: Nitrous Maternal Complications: None Shoulder Dystocia: No Stages of Labor Onset of Labor Date: 08/22/20 Onset of Labor Time: 13:30 Complete Dilatation Date: 08/22/20 Complete Dilatation Time: 15:35 Labor - Stage 1 Duration: 0 minutes ROM Baby A: 08/22/20 ROM Baby A: 06:15 ROM Total Time- Baby A: [id number] Infant Delivery Date-Baby A: 08/22/20 Delivery Time-Baby A: 17:23 Labor Stage 2 Duration: 1 hours and 48 minutes Placenta Delivery Date-Baby A: 08/22/20 Placenta Delivery Time-Baby A: 17:35 Labor-Stage 3 Duration: 12 minutes Total Length of Labor-Baby A: 3 hours and 53 minutes Placenta Status: Delivered Baby A Infant Gender: Male Gestational Status: Early Term (37-38.6 wks) Gestational Age in Weeks/Days: 37 Weeks and 6 Days Score-1 Minute Interval(Baby A) Heart Rate-1 minute: 100 BPM or Greater Respiratory Effort- 1 minute: Spontaneous/Strong Cry Muscle Tone-1 minute: Active Movement Reflex Response-1 minute: Prompt Response Color-1 minute: Bluish Hands or Feet Total Score-1 minute: 9 Score-5 Minute Interval(Baby A) Heart Rate- 5 minute: 100 BPM or Greater Respiratory Effort-5 minute: Spontaneous/Strong Cry Muscle Tone-5 minute: Active Movement Reflex Response-5 minute: Prompt Response Color-5 minute: [place]/No Cyanosis Total Score- 5 minute: 10 Interventions Repair of Laceration Type: Perineal and Periurethral , Laceration Extension: Second Degree . Sponge Count Correct: Vaginal Sweep Peformed , Sharp Count Correct: Yes . Laceration Repair Note: bilateral periurethral lacerations with no bleeding - not repaired
[2020-08-22] MEDS: Hamamelis Leaf/Glycerin 100 EACH BOX PR (18:27)
[2020-08-22] MEDS: Ibuprofen 600 MG TAB PO (18:27)
[2020-08-22] MEDS: Acetaminophen 325 MG TAB 650 MG PO (18:27)
[2020-08-23 02:46] VITALS: BP 113/73; PULSE 89; RESP 14; TEMP 37.4; O2SAT 98
[2020-08-23] MEDS: Ibuprofen 600 MG TAB PO ×3 (07:30→19:52)
[2020-08-23] MEDS: Acetaminophen 325 MG TAB 650 MG PO ×3 (07:32→19:52)
[2020-08-23 07:40] VITALS: BP 120/77; PULSE 92; RESP 16; TEMP 36.5; O2SAT 99
[2020-08-23 08:34] LABS: HCT 34.2 % (36.0-46.0); HGB 11.8 g/dL (11.2-15.7); MCH 29.9 pg (27.0-33.0); MCHC 34.5 % (32.0-36.0); MCV 86.8 fL (80-95); MPV 11.7 fL (8.0-11.0); Platelet Count 204 10^3/uL (130-400); RBC 3.94 10^6/uL (3.93-5.22); RDW 12.9 % (11.7-14.6); RDW-SD 40.3 fL; WBC 15.19 10^3/uL (4.4-10.8)
[2020-08-23 08:59] LABS: COVID-19 RT-PCR UVMMC Result Negative (Negative)
[2020-08-23 12:30] VITALS: BP 118/79; PULSE 93; RESP 16; TEMP 36.7; O2SAT 98
--- NOTE | 2020-08-23 14:33 | OBPPV_ITS ---
Date of service: 08/23/20 Time of Service: 14:33 Assessment and Plan Assessment and plan (1) Normal vaginal delivery: Status: Acute Assessment and plan: Caring for baby independently. Perineal pain is m anaged well with oral analgesics. Voiding without difficulty. well. A - stable mother and baby , Post day 1 P - Discharge to home . Routine post instructions. [facility] Subjective Subjective Patient comments: Pain well controlled baby status: Doing well and Nursing well feeding status: Exclusively breast feeding Narrative: Molly feels well though tired. Perineal pain well- managed with oral meds. Exam Physical Exam Vital signs: Temp Pulse Resp BP Pulse Ox 98.1 F 93 H 16 118/79 98 08/23/20 12:30 08/23/20 12:30 08/23/20 12:30 08/23/20 12:30 08/23/20 12:30 Vital Signs Reviewed: Yes Constitutional Constitutional: no acute distress Respiratory Exam Respiratory Exam: Normal Cardiovascular Exam Cardiovascular Exam: Normal Abdominal Exam Abdomen: Diastasis Fundal Exam Fundus: Below Umbilicus Rectal Exam Rectal Exam: Normal Exam Perineum: Edematous Extremities Exam Extremity Exam: Normal Back/Spine/Pelvis Exam Back Exam: Normal Skin Exam Skin Exam: Normal Psychiatric Exam Psychiatric Exam: Normal Results Hemoglobin/Hematocrit: Hgb 11.8 g/dL (11.2-15.7) 08/23/20 07:28 Hct 34.2 % (36.0-46.0) L 08/23/20 07:28 Abnormal Lab Findings: Abnormal Labs 08/22/20 08/22/20 08/23/20 12:17 12:17 07:28 WBC 11.58 H 15.19 H D Hct 34.2 L MPV 11.2 H 11.7 H Anion Gap 12.0 H Creatinine 0.54 L Glucose 73 L Alkaline Phosphatase 171 H Albumin 2.7 L
[2020-08-23 16:15] VITALS: BP 128/80; PULSE 92; RESP 18; TEMP 36.6; O2SAT 98
[2020-08-23] MEDS: Docusate Sodium 100 MG CAP PO (19:52)
[2020-08-24 06:31] VITALS: BP 128/81; PULSE 86; RESP 18; TEMP 36.4
[2020-08-24 07:30] VITALS: BP 124/80; PULSE 79; RESP 16; TEMP 36.7; O2SAT 100
[2020-08-24] MEDS: Acetaminophen 325 MG TAB 650 MG PO (07:59)
[2020-08-24] MEDS: Docusate Sodium 100 MG CAP PO (08:00)
[2020-08-24] MEDS: Ibuprofen 600 MG TAB PO (08:00)
--- NOTE | 2020-08-24 12:57 | OBPPV_ITS ---
Date of service: 08/24/20 Time of Service: 12:58 Assessment and Plan Assessment and plan (1) Normal vaginal delivery: Status: Acute Assessment and plan: A: PPD#2, nml recovery, processing experience appropriately, P: Discharge today, plan 2 & 6 weeks appt's with copy coordinator Planning POP's for BCM Written intructions reviewed and given to pt Subjective Subjective Patient comments: No complaints, Pain well controlled, Tolerating diet and Flatus present [place] baby status: Doing well, Nursing well, Rooming in and Strong Bonding Observed [place] feeding status: Exclusively breast feeding Exam Physical Exam Vital signs: Temp Pulse Resp BP Pulse Ox 98.1 F 79 16 124/80 100 08/24/20 07:30 08/24/20 07:30 08/24/20 07:30 08/24/20 07:30 08/24/20 07:30 Vital Signs Reviewed: Yes Constitutional Constitutional: no acute distress HEENT Exam HEENT Exam: Normal Neck Exam Neck Exam: Normal Breast Exam Bilateral: Breast Exam: Normal Nipple Exam: Normal Comments: milk easily expressed Respiratory Exam Respiratory Exam: Normal Cardiovascular Exam Cardiovascular Exam: Normal Abdominal Exam Abdomen: Other (soft, nontender) Fundal Exam Fundus: Below Umbilicus and Firm Rectal Exam Rectal Exam: Normal Exam Perineum: Intact, Normal and Repair Intact External: Present normal urethra appearance Extremities Exam Extremity Exam: Normal Back/Spine/Pelvis Exam Back Exam: Normal Skin Exam Skin Exam: Normal Neurological Exam Neurological Exam: Normal Psychiatric Exam Psychiatric Exam: Normal Results Hemoglobin/Hematocrit: Hgb 11.8 g/dL (11.2-15.7) 08/23/20 07:28 Hct 34.2 % (36.0-46.0) L 08/23/20 07:28
--- NOTE | 2020-08-24 13:01 | W.PM.OBDISCH ---
Date of service: 08/24/20 Time of Service: 13:01 DS: Diagnosis Discharge Diagnosis (1) Normal vaginal delivery: Status: Acute (2) Term delivered: Status: Acute Discharge Plan Disposition Patient Disposition: HOME Condition: Good Discharge Details Reason For Visit: R/O SROM Admit Date/Time: 08/22/20 11:59 Admit Provider: Omaira Bauman Attending Provider: Omaira Bauman Primary Care Provider: Savanah Hoang Hospital Course Hospital Course: , nml PP course Home Meds and New Rx's Prescriptions: Continued PrePlus 27 mg iron- 1 mg tablet 1 tab PO DAILY Qty: 90 RF: 3 Discontinued valacyclovir [Valtrex] 500 mg tablet 500 mg PO BID Qty: 60 RF: 1 Discharge Instructions Additional Instructions: Please call [facility] at [phone] on Friday to schedule your 2 week and 6 week appointments with your idwife Stand Alone Forms: BC Instructions, NB Circumcision Care Inst., NB [place] Instructions, Post Vaginal Deliver Activity:: Activity as Tolerated Equipment/Supplies:: No Equipment Needed Diet:: Normal Diet Discharge Orders Discharge Orders: Discharge Order (Routine); Ordered 08/24/20 Ordered By: Meena Jeronimo OB:DS Summary Summary Vaginal Delivery Method: Spontaneaous Episiotomy Description: None Laceration Description: Perineal and Periurethral Laceration Extension: Second Degree Contraception Discussed Contraception Discussed: Yes, Infant Gender-Baby A: Male weight: 7 lb 1.406 oz Status at Discharge Functional status at discharge: independent ambulation Overall status at discharge: patient is progressing back to baseline Mental Status: mental status grossly normal Speech and Movement: speech and movement normal and speech clear Mood: congruent mood Affect: normal affect Exam Physical Exam Vital signs: Temp Pulse Resp BP Pulse Ox 98.1 F 79 16 124/80 100 08/24/20 07:30 08/24/20 07:30 08/24/20 07:30 08/24/20 07:30 08/24/20 07:30 Constitutional Constitutional: no acute distress HEENT Exam HEENT Exam: Normal Neck Exam Neck Exam: Normal Breast Exam Bilateral: Breast Exam: Normal Comments: milk easily expressed Respiratory Exam Respiratory Exam: Normal Cardiovascular Exam Cardiovascular Exam: Normal Abdominal Exam Abdomen: Other (soft, nontender) Fundal Exam Fundus: Below Umbilicus and Firm Rectal Exam Rectal Exam: Normal Exam Perineum: Intact, Normal and Repair Intact External: Present normal urethra appearance Extremities Exam Extremity Exam: Normal Back/Spine/Pelvis Exam Back Exam: Normal Skin Exam Skin Exam: Normal Neurological Exam Neurological Exam: Normal Psychiatric Exam Psychiatric Exam: Normal [facility] Medical History Anxiety and depression Hx of polymerase chain reaction DNA 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 (08/11/14) 2009 Seasonal affective disorder Family History Mother Essential hypertension Hypothyroid Maternal Grandfather Heart disease Paternal Grandfather Colon cancer Father Sarcoidosis Maternal Grandmother Dementia Macular degeneration Social History Smoking/Tobacco Use Status: Never Smoking risk assessment performed?: Yes Alcohol Intake: current Alcohol Intake frequency: a few times a week Drug use: Never Substance use type: does not use Household members: significant other Housing: house Communication Needs: None current occupation: Teacher Pets and animals: No Sexually active: Yes Current gender identity: female What is your relationship status?: living with partner Panel score (0-1 are the most socially isolated patients): 1 What type of physical activity do you participate in: running Frequency: 1-2 times per week Do you feel safe at home: Yes Do you feel safe in your relationship?: Yes Female Reproductive History Menstrual control method: pills History History 1 Para 0 Hx # Term Pregnancies 0 Multiple births 0 Hx # Pregnancies 0 Ectopic pregnancies 0 AB induced 0 Hx Number of Living Children 0 AB spontaneous 0 DS: Data Vitals/I&O Vitals and I&O: Vital Signs Temperature 98.1 F 08/24/20 07:30 Pulse 79 08/24/20 07:30 Pulse Rhythm Regular 08/24/20 07:30 Respiratory Rate 16 08/24/20 07:30 Blood Pressure 124/80 08/24/20 07:30 Blood Pressure Mean 94 08/24/20 07:30 Pulse Oximetry 100 08/24/20 07:30 Oxygen Delivery Method Room Air 08/22/20 12:18 Oxygen Flow Rate 0 08/22/20 12:18 Pain Level 4 08/24/20 08:00 Intake & Output 08/23/20 08/24/20 08/24/20 23:59 11:59 23:59 Other: Urine Color Pale Pale Yellow
== END 2020-08-24 15:45 | disposition home or self-care (01) | DRG 807 ==
PROVIDERS: Admitting Provider Advanced Practice Midwife; PCP Nurse Practitioner Family; Visit Provider Advanced Practice Midwife
DX: O99.344 Other mental disorders complicating childbirth (principal); Z37.0 Single live birth; F41.9 Anxiety disorder, unspecified; Z3A.37 37 weeks gestation of pregnancy; O75.89 Other specified complications of labor and delivery; M54.31 Sciatica, right side; O70.1 Second degree perineal laceration during delivery
CPT/HCPCS: 36415; 80053; 84112; 85027; 86850; 86900; 86901; U0003; 84550; G0378

== ENCOUNTER 2020-10-03 14:21 | Outpatient (REF) | payer BC, SELFPAY ==
--- NOTE | 2020-10-03 13:50 | CER_PTH ---
PATIENT: Molly Gonzalez LOC: [facility] U#:[id number] AGE/SX: 30/F ROOM: RE10/03/[address]: Sanna Wilson DO : 1990 BED: DIS: 10/03/2020 SPEC #: [id number] RECD: 10/04/20 12:37 STATUS: SAMIRA REQ #: [id number] SHERLEY: 10/03/20 13:[address]: Sanna Wilson DEPT: Surgical Specimen RECD BY: Myrtle Sinclair ENTERED: 10/04/20 12:38 SP TYPE: CER BOWEN DR: Savanah Hoang APRN Tissues: 1 - CERVICAL BIOPSY 2 - ENDOCERVICAL BX/CURRETTE Procedures: GROSS AND MICRO LEVEL 4 Comments: [id number]
== END 2020-10-03 14:22 | disposition home or self-care (01) ==
LOC: LBN 14:21
PROVIDERS: PCP Nurse Practitioner Family; Visit Provider Obstetrics & Gynecology
DX: N87.0 Mild cervical dysplasia (principal); R87.612 Low grade squamous intraepithelial lesion on cytologic smear of cervix (LGSIL)
CPT/HCPCS: 88305

== ENCOUNTER 2021-10-22 09:39 | Outpatient (REF) | payer BC, SELFPAY ==
--- NOTE | 2021-10-22 09:15 | PAPFT_PTH ---
PATIENT: Molly Gonzalez LOC: [facility]#:[id number] AGE/SX: 31/F ROOM: RE10/22/[address]: BENITEZ Oquendo : 1990 BED: DIS: 10/22/2021 SPEC #: [id number] RECD: 10/22/21 12:51 STATUS: ANTONINeo REKarine #: [id number] SHERLEY: 10/22/21 09:[address]: Bryanna Schuler DEPT: [facility] Cytology RECD BY: Myrtle Sinclair ENTERED: 10/22/21 12:52 SP TYPE: PAPFT OT DR: Savanah Hoang APRN Tissues: 1 - CX/ENDOCX FOR PAP SMEARS Procedures: PAP THIN PREP/UVM Screening HPV DNA PROBE Comments: [id number]
[2021-10-23 15:12] LABS: Chlamydia Result Negative (Negative); GC Result Negative (Negative)
== END 2021-10-22 09:40 | disposition home or self-care (01) ==
LOC: LBN 09:39
PROVIDERS: PCP Nurse Practitioner Family; Visit Provider Nurse Practitioner Family
DX: Z11.3 Encounter for screening for infections with a predominantly sexual mode of transmission (principal); Z12.4 Encounter for screening for malignant neoplasm of cervix; Z11.51 Encounter for screening for human papillomavirus (HPV); R87.810 Cervical high risk human papillomavirus (HPV) DNA test positive
CPT/HCPCS: 87491; 87591; 88142; 87624

== ENCOUNTER 2021-10-22 16:49 | Outpatient (REF) | payer BC, SELFPAY | END 2021-10-22 16:50 | disposition home or self-care (01) | LOC: LBN 16:49 | PROVIDERS: PCP Nurse Practitioner Family; Visit Provider Nurse Practitioner Family ==

== ENCOUNTER 2021-11-29 16:33 | Outpatient (REF) | payer BC, SELFPAY ==
--- NOTE | 2021-11-29 15:45 | ENDO_PTH ---
PATIENT: Molly Gonzalez LOC: [facility] U#:[id number] AGE/SX: 31/F ROOM: RE11/29/[address]: Sanna Wilson DO : 1990 BED: DIS: 11/29/2021 SPEC #: [id number] RECD: 11/29/21 17:19 STATUS: SAMIRA RE #: [id number] SHERLEY: 11/29/21 15:[address]: Sanna Wilson DEPT: Surgical Specimen RECD BY: Myrtle Sinclair ENTERED: 11/29/21 17:19 SP TYPE: Endo OTHR DR: Savanah Hoang APRN Tissues: 1 - ENDOCERVICAL BX/CURRETTE Procedures: GROSS AND MICRO LEVEL 4 Comments: [id number]
== END 2021-11-29 16:34 | disposition home or self-care (01) ==
LOC: LBN 16:33
PROVIDERS: PCP Nurse Practitioner Family; Visit Provider Obstetrics & Gynecology
DX: R87.810 Cervical high risk human papillomavirus (HPV) DNA test positive (principal)
CPT/HCPCS: 88305

== ENCOUNTER 2021-12-31 16:23 | Outpatient (REF) | payer BC, SELFPAY ==
[2022-01-02 12:00] LABS: COVID-19 RT-PCR UVMMC Result Negative (Negative)
== END 2021-12-31 16:24 | disposition home or self-care (01) ==
LOC: LBN 16:23
PROVIDERS: PCP Nurse Practitioner Family; Visit Provider Nurse Practitioner Adult Health
DX: Z20.822 Contact with and (suspected) exposure to COVID-19 (principal); R05.8 Other specified cough
CPT/HCPCS: U0003

== ENCOUNTER 2022-03-12 20:22 | Emergency (ER) | payer BC, SELFPAY ==
[2022-03-12 20:34] VITALS: BP 125/74; PULSE 116; RESP 19; TEMP 37.1; O2SAT 100
--- NOTE | 2022-03-12 21:00 | ED.GENADUL_ITS ---
Discharge Plan Disposition Patient Disposition: HOME Condition: Improving Discharge Details Clinical Impression: Exudative pharyngitis Primary Care Provider: Savanah Hoang ED Provider: Bin Veronica Home Meds and New Rx's Prescriptions: New penicillin V potassium 500 mg tablet 500 mg PO TID 10 Days Qty: 30 0RF Continued Women's Multivitamin Gummies 200 mcg tablet,chewable 1 tab PO DAILY Discharge Instructions Instructions: Pharyngitis (ED) Additional Instructions: Home to rest this evening. Small, frequent sips of fluids to maintain hydration. Tylenol and/or ibuprofen as needed for pain. Take penicillin 4 times in the first 24 hours, then 3 times daily as prescribed. Return for any acute concerns Medical Decision Making 31-year-old female presents with sore throat over a day and a half. She is well-appearing, eating and drinking, no drooling. Her exam is consistent with an exudative pharyngitis. She has had a history of strep throat in the past. We will treat with a course of penicillin. She is able to liberally hydrate and is appropriate for outpatient management. HPI General Mode of arrival: ambulatory . Date/Time Provider Initiated Documentation: 03/12/22 20:39 . Limitations to Documentation: no limitations . Information obtained by: patient . History of Present Illness 31 year old F presents to the emergency department with the chief complaint of Sore throat, described as moderate, Quality is described as dull and constant, and is localized to the mouth. Patient reports no radiation. Patient started experiencing this hour(s) and it has been constant. No relieving factors improve symptom(s), No exacerbating factors reported . Patient notes denies cough and shortness of breath. Patient did receive the following treatments prior to arrival, NSAID Related Data Home Medications Medication Instructions Recorded Confirmed multivitamin with minerals-folic 1 tab PO DAILY 10/17/21 03/12/22 acid 200 mcg chewable tablet (Women's Multivitamin Gummies) penicillin V potassium 500 mg 500 mg PO TID 10 days #30 tabs 03/12/22 tablet Previous Rx's Medication Instructions Recorded penicillin V potassium 500 mg 500 mg PO TID 10 days #30 tabs 03/12/22 tablet Allergies Allergy/AdvReac Type Severity Reaction Status Date / Time ondansetron HCl [From Zofran] Allergy Unknown Hives Verified 12/31/21 16:07 General Stated Complaint: Sorethroat SLIME: 3 Review of Systems Narrative: No vomiting, eating and drinking. No drooling or change to voice. 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 Will need pap and HPV 10/2021 Normal Pap, 10/2021. Persistent positive high risk HPV. Colposcopy performed, 11/29/2021. Anxiety and depression (Chronic) Seasonal affective disorder (Chronic) Medical History Spontaneous onset of labor Spontaneous rupture of amniotic membranes Family History Mother Essential hypertension Hypothyroid Maternal Grandfather Heart disease Paternal Grandfather Colon cancer Father Sarcoidosis Maternal Grandmother Dementia Macular degeneration Social History Smoking/Tobacco Use Status: Never Smoking risk assessment performed?: Yes Alcohol Intake: current Alcohol Intake frequency: a few times a week Drug use: Never Substance use type: does not use Adopted: No Caregiver/Support person: No Foster care: No Household members: significant other and children Housing: house Number of Children: 1 Communication Needs: None and Corrective Lenses Education Level: master's degree current occupation: Teacher Pets and animals: Yes Sexually active: Yes Do you think of yourself as: straight/heterosexual Current gender identity: female What is your relationship status?: living with partner How often do you talk on the phone with friends or family?: three or more times per week How often do you get together with friends or relatives?: once per week Panel score (0-1 are the most socially isolated patients): 2 What type of physical activity do you participate in: none Frequency: 1-2 times per week Seatbelt use: always Helmet use: Yes Drive intox or ride w/intox flatbed truck driver: No Do you feel safe at home: Yes Do you feel safe in your relationship?: Yes Female Reproductive History Menstrual control method: pills History History 1 Para 1 Hx # Term Pregnancies 1 Multiple births 0 Hx # Pregnancies 0 Ectopic pregnancies 0 AB induced 0 Hx Number of Living Children 1 AB spontaneous 0 Past Pregnancies Del. Date GA/Weeks # Preg Succ Route Wgt Sex Labor Lgth Anesth esia Location Prov Complic 08/22/20 37 No vaginal Male 3 hrs 53 min regional [facility] [place] Delivery Date: 08/22/20 Last Updated by: Sanna Flores LPN 2nd degree laceration, repaired. Alok Bueno [place] Exam Narrative Exam Narrative: GEN: awake, alert, oriented 3. Pleasant, well groomed, interactive. HEAD: Normocephalic, atraumatic ENT: Mucous membranes moist, oropharynx erythematous with white exudate, no swelling or asymmetry, tympanic membranes clear bilaterally external ear exam unremarkable EYES: PERRL, EOMI NECK: Full ROM, no NENITA, no menigismus CHEST/RESP: Nontender, clear to auscultation bilateral, no wheeze/rhonchi/rales CARDIOVASCULAR: Regular and tachycardic, no murmur, rub oliver. 2+ Rad pulse bilateral EXT: Full ROM, no edema, no rash Neuro: Grossly normal neurologic exam, conversant, interactive. Psych: Speech fluent, thoughts congruent, affect normal Course Vital Signs Vital signs: Vital Signs Temperature 37.1 C 03/12/22 20:34 Pulse 116 H 03/12/22 20:34 Respiratory Rate 19 03/12/22 20:34 Blood Pressure 125/74 03/12/22 20:34 Pulse Oximetry 100 03/12/22 20:34 Temperature 37.1 C 03/12/22 20:34 Temperature Source Skin 03/12/22 20:34 Pulse 116 H 03/12/22 20:34 Respiratory Rate 19 03/12/22 20:34 Respiratory Effort 03/12/22 20:41 Blood Pressure 125/74 03/12/22 20:34 Blood Pressure Position Sitting 03/12/22 20:34 Pulse Oximetry 100 03/12/22 20:34 Oxygen Delivery Method Room Air 03/12/22 20:34 Oxygen Flow Rate 0 03/12/22 20:34 Pain Level 7 03/12/22 20:34
[2022-03-12] MEDS: Penicillin V POTASSIUM 500 MG TAB, 4 TABS/BTL PO (21:16)
== END 2022-03-12 21:22 | disposition home or self-care (01) ==
PROVIDERS: Emergency Provider Emergency Medicine; PCP Nurse Practitioner Family
DX: J02.9 Acute pharyngitis, unspecified (principal); R00.0 Tachycardia, unspecified
CPT/HCPCS: 99283; 99284

== ENCOUNTER 2022-10-29 16:17 | Outpatient (REF) | payer BC, SELFPAY ==
--- NOTE | 2022-10-29 16:20 | PAPFT_PTH ---
PATIENT: Molly Gonzalez LOC: [facility] U#:[id number] AGE/SX: 32/F ROOM: RE10/29/[address]: Rachel Mccoy MD : 1990 BED: DIS: 10/29/2022 SPEC #: [id number] RECD: 10/29/22 18:09 STATUS: SAMIRA REKarine #: [id number] SHERLEY: 10/29/22 16:[address]: Rachel Mccoy DEPT: [facility] Cytology RECD BY: Myrtle Sinclair ENTERED: 10/29/22 18:09 SP TYPE: PAPFT BOWEN DR: Savanah Hoang APRN Tissues: 1 - CX/ENDOCX FOR PAP SMEARS Procedures: PAP THIN PREP/UVM Screening HPV DNA PROBE Comments: [id number] (HPV 16 & 18/45)
== END 2022-10-29 16:18 | disposition home or self-care (01) ==
LOC: LBN 16:17
PROVIDERS: PCP Nurse Practitioner Family; Visit Provider Obstetrics & Gynecology
DX: Z12.4 Encounter for screening for malignant neoplasm of cervix (principal); Z11.51 Encounter for screening for human papillomavirus (HPV); R87.810 Cervical high risk human papillomavirus (HPV) DNA test positive
CPT/HCPCS: 88142; 87624

== ENCOUNTER 2023-10-24 01:10 | Outpatient (CLI) | payer BC, SELFPAY ==
[2023-10-24 08:13] LABS: Abs Immature Grans 0.01 10^3/uL (0.0-0.06); Absolute Basophil Count 0.04 10^3/uL (0.0-0.2); Absolute Eosinophil Count 0.13 10^3/uL (0.0-0.7); Absolute Lymphocyte Count 1.45 10^3/uL (1.2-3.4); Absolute Monocyte Count 0.29 10^3/uL (0.1-0.8); Absolute Neutrophil Count 2.68 10^3/uL (1.2-6.7); Basophils % 0.9; Eosinophils % 2.8; HGB 13.6 g/dL (11.2-15.7); Immature Grans % 0.2; Lymphocytes % 31.5; MCH 29.2 pg (27.0-33.0); MCV 86 fL (80-95); Monocytes % 6.3; Neutrophils % 58.3; Platelet Count 224 10^3/uL (130-400); RBC 4.66 10^6/uL (3.93-5.22); RDW 11.9 % (11.7-14.6); RDW-SD 37.7 fL
[2023-10-24 08:41] LABS: ALT 15 U/L (14-59); AST 12 U/L (15-37); Albumin 3.8 g/dL (3.4-5.0); Alkaline Phosphatase 57 U/L (46-116); Anion Gap 8.2 mmol/L (3-11); BUN 15 mg/dL (7-18); Bilirubin, Total 0.5 mg/dL (0.2-1.0); CO2 29.8 mmol/L (21.0-32.0); CREATININE 0.7 mg/dL (0.55-1.02); Calcium 9.5 mg/dL (8.5-10.1); Calculated LDL 129 mg/dL (<100); Chloride 103 mmol/L (98-107); Cholesterol 222 mg/dL (<200); Estimated GFR 116.31 (mL/min/1.73m2); Glucose 85 mg/dL (74-106); HDL Cholesterol 77 mg/dL (40-60); Sodium 141 mmol/L (136-145); TSH (W/Ref FT4) 1.05 uIU/mL (0.36-3.74); Total Protein 7.9 g/dL (6.4-8.2); Triglyceride 84 mg/dL (<150)
[2023-10-24 09:14] LABS: Vitamin D 25 Total 30.5 ng/mL (30-100)
== END 2023-10-24 01:11 | disposition home or self-care (01) ==
LOC: LBO 01:10
PROVIDERS: Absent Provider Nurse Practitioner Family; PCP Nurse Practitioner Family; Visit Provider Nurse Practitioner Family
DX: R53.83 Other fatigue (principal); Z13.220 Encounter for screening for lipoid disorders; Z13.1 Encounter for screening for diabetes mellitus; E55.9 Vitamin D deficiency, unspecified; E03.9 Hypothyroidism, unspecified
CPT/HCPCS: 36415; 80053; 80061; 82306; 84443; 85025

== ENCOUNTER 2023-12-09 15:56 | Outpatient (REF) | payer BC, SELFPAY ==
--- NOTE | 2023-12-09 16:00 | PAPFT_PTH ---
PATIENT: Molly Gonzalez LOC: [facility]#:[id number] AGE/SX: 33/F ROOM: RE12/09/[address]: Rachel Mccoy MD : 1990 BED: DIS: 12/09/2023 SPEC #: [id number] RECD: 12/09/23 17:28 STATUS: SAMIRA REKarine #: [id number] SHERLEY: 12/09/23 16:[address]: Rachel Mccoy DEPT: [facility] Cytology RECD BY: Myrtle Sinclair ENTERED: 12/09/23 17:29 SP TYPE: PAPFT BOWEN DR: Savanah Hoang APRN Tissues: 1 - CX/ENDOCX FOR PAP SMEARS Procedures: PAP THIN PREP/UVM Screening HPV DNA PROBE Comments: [id number]
== END 2023-12-09 15:57 | disposition home or self-care (01) ==
LOC: LBN 15:56
PROVIDERS: PCP Nurse Practitioner Family; Visit Provider Obstetrics & Gynecology
DX: N94.9 Unspecified condition associated with female genital organs and menstrual cycle (principal)
CPT/HCPCS: 88142; 87480; 87510; 87624; 87660

== ENCOUNTER → 2023-12-22 03:10 | Outpatient (CLI) | payer BC, SELFPAY ==
--- NOTE | 2023-12-22 14:02 | DI.MAMMO_ITS ---
Exam(s) MAMMO DIAGNOSTIC BI EXAM: MAMMO DIAGNOSTIC BI CLINICAL HISTORY: breast pain,LT, N64.4. TECHNIQUE: Craniocaudal and mediolateral oblique Full Field Digital Mammography views with Computer Aided Diagnosis. COMPARISON: This is a baseline examination. FINDINGS: Mammography/Tomosynthesis: Masses/Architectural Distortion: None seen. Microcalcifictions: No suspicious pleomorphic-type are seen. Skin Thickening/Nipple Retraction: None. IMPRESSION: 1. No evidence of malignancy is noted. 2. Unless there is more urgent need, follow-up screening mammography is recommended, as per [place] [employer] guidelines. 3. The findings were discussed with the patient on the date of the examination. BI-RADS Category 1 - Negative Breast Density - Category C - Heterogeneously dense Breast density Category C or D implies that the patient has dense breast tissue. Dense breast tissue can make it harder to find cancer on a mammogram. Dense breast tissue is also associated with an incr eased risk of breast cancer. This information about the result of the mammogram report was provided to the patient to raise their awareness. Use this report when you speak with the patient about their risks for breast cancer, which includes their family history. At that time, you may recommend additional screening tests (Ultrasoun d or MRI) as these tests may add significant information. A negative radiographic report should not delay biopsy if a dominant or clinically suspicious mass is present. Up to ten percent of cancers are not identified on mammography. A negative report may reinforce clinical impression. Adenosis and dense breasts may obscure an underlying neoplasm. False positive reports average 6 to 10%. Patient will receive a letter notifying them of these results.
== END ==
PROVIDERS: PCP Nurse Practitioner Family; Visit Provider Obstetrics & Gynecology
DX: N64.4 Mastodynia (principal); Z12.31 Encounter for screening mammogram for malignant neoplasm of breast
CPT/HCPCS: 77062; 77066; G0279

== ENCOUNTER 2024-01-05 05:13 | Outpatient (CLI) | payer BC, SELFPAY ==
[2024-01-05 08:25] LABS: Vitamin D 25 Total 52.2 ng/mL (30-100)
== END 2024-01-05 05:14 | disposition home or self-care (01) ==
PROVIDERS: PCP Nurse Practitioner Family; Visit Provider Nurse Practitioner Adult Health
DX: R79.89 Other specified abnormal findings of blood chemistry (principal)
CPT/HCPCS: 36415; 82306

== ENCOUNTER 2024-12-10 13:31 | Outpatient (REF) | payer BC, SELFPAY ==
--- NOTE | 2024-12-10 13:20 | PAPFT_PTH ---
PATIENT: Molly Gonzalez LOC: [facility] U#:[id number] AGE/SX: 34/F ROOM: RE12/10/[address]: Rachel Mccoy MD : 1990 BED: DIS: 12/10/2024 SPEC #: [id number] RECD: 12/10/24 17:42 STATUS: SAMIRA REKarine #: [id number] SHERLEY: 12/10/24 13:[address]: Rachel Mccoy DEPT: [facility] Cytology RECD BY: Myrtle Sinclair ENTERED: 12/10/24 17:42 SP TYPE: PAPFT BOWEN DR: Lou Buckley APRN Tissues: 1 - CX/ENDOCX FOR PAP SMEARS Procedures: PAP THIN PREP/UVM Screening HPV DNA PROBE Comments: [id number] (HPV 16 & 18/45)
== END 2024-12-10 13:32 | disposition home or self-care (01) ==
LOC: LBN 13:31
PROVIDERS: PCP Nurse Practitioner Adult Health; Visit Provider Obstetrics & Gynecology
DX: Z11.51 Encounter for screening for human papillomavirus (HPV) (principal); Z01.419 Encounter for gynecological examination (general) (routine) without abnormal findings
CPT/HCPCS: 88142; 87624